=== PATIENT | female | born 1985 | race Caucasian/White ===

== ENCOUNTER 2020-04-27 07:56 | Day surgery (SDC) | payer OTHER ==
--- NOTE | ~2020-04-27 | OR ---
[facility] [address] [place], [place] [address] Draft DATE OF OPERATION: 04/27/2020 SURGEON: Trupti Patel MD PREOPERATIVE DIAGNOSES: 1. Severe left flank pain/nausea and vomiting in a female. 2. Likely obstructing left ureterolithiasis. POSTOPERATIVE DIAGNOSIS: 1. Severe left flank pain/nausea and vomiting in a female. 2. Likely obstructing left ureterolithiasis. PROCEDURES: Diagnostic cystoscopy with left ureteral stent insertion. ANESTHESIA: Spinal anesthesia. ESTIMATED BLOOD LOSS: Minimal. COMPLICATIONS: None. SPECIMENS: None. DRAINS: A 6 x 24 cm double-J ureteral stent inserted into the left ureter. INDICATIONS FOR PROCEDURE: Yumiko is a very pleasant 34-year-old female, who is currently 22 weeks with her third child, who presented to the [facility] early this morning with complaints of a one day or so history of severe left-sided flank pain, nausea, and vomiting. At first, she thought she "over did it while doing house work," however, her flank pain progressively worsened and got to the point where she felt as though she was experiencing active labor. She was given IV Dilaudid multiple times with no significant improvement in her symptoms, and she was also unable to tolerate p.o. intake. She underwent a renal bladder ultrasound this morning at 09:30, which revealed dilation of the left proximal ureter and left renal pelvis along with a lack of ureteral jet on the PATIENT NAME: YUMIKO RICHARD OPERATIVE REPORT DATE OF : [birth year] REPORT #: [id number] PHYSICIAN: TRUPTI PATEL MD PCP: ANGUS BURROWS MD REPORT IS CONFIDENTIAL AND NOT TO BE RELEASED WITHOUT AUTHORIZATION [facility] [address] [place], [place] [address] Draft left side. After discussion of the risks and benefits of the procedure, the patient elected to undergo cystoscopy with left ureteral stent insertion for management of her likely obstructing left ureteral lithiasis. OPERATIVE FINDINGS: 1. On cystoscopy, there was no evidence of any suspicious masses, lesions, or stones. Panendoscopic views of the bladder revealed no other abnormalities. 2. A 6 x 24 cm double-J ureteral stent was inserted into the left collecting system under direct visualization without any difficulty. Upon cannulization of the left ureter, there was a noticeable amount of debris that efflux from the left ureter. This is suggestive of an obstructing stone at some point in the left ureter. The stent was otherwise placed without any difficulty. DESCRIPTION OF PROCEDURE: After informed consent was obtained, the patient was taken back to the operating room. She was transferred from the [facility] to the operating room table, where spinal anesthesia was then induced. She was then placed in the dorsal lithotomy position and the genitalia were prepped and draped in the standard sterile fashion. Using a 30-degree lens on a 22.5-Icelandic introducer, rigid cystoscope was inserted through urethra into her bladder under direct visualization. Panendoscopic views of the bladder were then obtained. Please see above findings. Attention was then turned to the left ureteral orifice. A 0.035 Sensor wire was used to cannulate the left ureter. The wire was advanced to the level of the left renal pelvis, which was confirmed on fluoroscopy. Once adequate placement of the wire was confirmed, a 6 x 24 cm ureteral stent was passed over the wire into the left collecting system under direct visualization. Once the stent was clearly up into the left renal pelvis, Sensor wire was pulled, leaving the ureteral stent with an adequate proximal coil within the left renal pelvis. An adequate distal coil was noted on cystoscopy once the wire was pulled. The patient's bladder was then irrigated again and then emptied. The procedure was then terminated. The patient tolerated the procedure well without any complication. She will now be transferred to the post anesthesia care unit in stable condition. DISPOSITION: I discussed the details of today's procedure with the patient and her and answered all of her questions. She will maintain the stent indwelling on the left side for the remainder of her . She was currently due to deliver on August 27. She will be sent home with cephalexin 500 mg p.o. b.i.d. for the next seven days. Dr. Burrows will be handling the pain control for the patient as needed. She has been placed on our schedule for followup on August 31 for history and physical in preparation for ureteroscopic extraction of her obstructing left ureteral calculus. PATIENT NAME: YUMIKO RICHARD OPERATIVE REPORT DATE OF : [birth year] REPORT #: [id number] PHYSICIAN: TRUPTI PATEL MD PCP: ANGUS BURROWS MD REPORT IS CONFIDENTIAL AND NOT TO BE RELEASED WITHOUT AUTHORIZATION [address] [address] Draft MD PHILOMENA [place]/DIANE /[id number] Copies: ~ PATIENT NAME: YUMIKO RICHARD OPERATIVE REPORT DATE OF : [birth year] REPORT #: [id number] PHYSICIAN: TRUPTI PATEL MD PCP: ANGUS BURROWS MD REPORT IS CONFIDENTIAL AND NOT TO BE RELEASED WITHOUT AUTHORIZATION
[~2020-04-27 07:56] MED LIST: ZANTAC150 MG PO
--- NOTE | 2020-04-27 13:40 | NUR ---
1245-SWABBED BOTH NARES FOR RAPID COVID TEST
--- NOTE | 2020-04-27 15:40 | NUR ---
04/27/20 1540 Carmen Mosley 1515 PT ARRIVED IN PACU WIDE AWAKE C/O FEELING LIGHT HEADED. HOB LOWERED AND IV FLUID WIDE OPEN. ANESTHESIA AT BEDSIDE. 1520 PT FEELING BETTER. FHT'S 150'S IN LLQ. 1530 DR AT BEDSIDE TALKING WITH PT. ALL QUESTIONS ANSWERED.
--- NOTE | 2020-04-27 15:50 | NUR ---
PATIENT TO FLOOR FROM PACU, BEDSIDE REPORT FROM KATARZYNA MONTERO. PATIENT AWAKE AND REQUESTING FOOD. PATIENT REPORTS NUMBNESS IN LEGS AND UNABLE TO MOVE TOES AT THIS TIME. REPORTS NO PAIN OR NAUSEA. DRINKING FLUIDS WELL. CALL LIGHT WITHIN REACH. INSTRUCTED TO CALL WHEN SPINAL WEARS OFF AND ABLE TO PEE.
--- NOTE | 2020-04-27 16:15 | NUR ---
FOOD TRAY DELIVERED TO ROOM.
--- NOTE | 2020-04-27 16:30 | NUR ---
PATIENT UP TO BATHROOM VOIDED 350 ML OF URNINE. REPORTS NO NAUSEA, TOLERATES AMBULATING WELL. PATIENT REPORTS DR. PATEL WAS UNSURE OF PATIENTS PAIN MEDICAITONS AND WANTED DR. LUA WOULD BE CONSULTED. TELEPHONE CALL TO DR. PATEL WHO CONFIRMED WANTNG PATIENT TO HAVE DR. LUA PRESCRIBE. CALL TO DR. LUA WHO REPORTED WOULD BE TO UNIT TO WRITE PAIN MEDICAITON PERSCRIPTION.
--- NOTE | 2020-04-27 16:50 | NUR ---
PATIENT VSS REPORTED TO DR. PATEL WHO OKAYED FOR PATIENT TO GO HOME, CALL TO DR. LUA WHO ALSO REPORTED PATIENT OKAY TO GO HOME. INSTRUCTED THE PATIENT TO CALL DR. LUA WITH ANY FURTHER CONCERNS OR WORSENING CONDITIONS.
--- NOTE | 2020-04-27 17:15 | NUR ---
PROVIDED PATIENT WITH DISCHARGE EDUCATION, ANSWERED QUESTIONS AND CONCERNS. VSS. PATIENT HAS SCRIPTS IN HAND. IV DC'D BY MUCKER COFFERDAM, CATH INTACT. PROVIDED WHEELCHAIR RIDE TO FRONT. PATIET AND AT FRONT LOBBY FILLING OUT PAPER WORK WITH ADMITTING.
== END 2020-04-27 17:15 | disposition home or self-care (01) ==
LOC: DS 07:56 → FBCO 07:56 → DS 12:45 → FBCO 12:45 → EDSTATUS 13:00 → DS 17:15 → FBCO 17:15
PROVIDERS: Urology; ATTEND Obstetrics & Gynecology
PROC: 0T9780Z Drainage of Left Ureter with Drainage Device, Via Natural or Artificial Opening Endoscopic (ICD-10-PCS; principal; 2020-04-27 13:00)
DX: O99.891 Other specified diseases and conditions complicating pregnancy (principal); N13.2 Hydronephrosis with renal and ureteral calculous obstruction; R10.9 Unspecified abdominal pain; Z20.822 Contact with and (suspected) exposure to COVID-19; Z3A.22 22 weeks gestation of pregnancy; Z96.0 Presence of urogenital implants
CPT/HCPCS: 00918; 76000; 76775; 81001; 85025; 87088; 96365; 96366; 96374; 96375; C1769; C2617; C9803; J0690; J1170; J2001; J2405; J2765; J3010; J7121; U0003

== ENCOUNTER 2020-08-27 05:59 | Inpatient (IN) | payer OTHER ==
[~2020-08-27] VITALS: Ht 162.6 cm; Wt 77.1 kg
--- NOTE | 2020-08-27 16:06 | PR ---
[facility] [address] [facility] [place] [address] Signed Progress Notes IP Datetime Report Generated by CPN: 08/27/2020 16:06 PROGRESS NOTES: [id number] Impression: Reassuring Heart Rate Procedures: Artificial ROM; Sterile Vag Exam Plan: Continue Present Management VITAL SIGNS: [id number] Vital Signs: Reviewed; Within Normal Limits EXAM: [id number] Dilatation: 1.0 Effacement: 50 Station: -2 Contractions: q 1 to 3 min MEMBRANES: [id number] Comments: Becoming more uncomfortable with contractions. Pit augment started earlier as she had a couple of deep variables and did not feel comfortable using another Cytotec. She is progressing. Will continue. FETUS A: [id number] FHR Baseline: 145 Variability: Moderate 6-25bpm Accelerations: 15X15 Decelerations: None FHR Category: Category I Presentation: Vertex Comments on Fetus A: No evidence of metabolic acidosis FETUS B: [id number] Signing Physician: Nadiya Burrows MD Copies: ~ *Electronically Signed* 08/27/20 1606 NADIYA BURROWS MD PATIENT NAME: FUAD RICHARD PROGRESS NOTE DATE OF : [birth year] PHYSICIAN: NADIYA BURROWS MD RPT #: [id number] REPORT IS CONFIDENTIAL AND NOT TO BE RELEASED WITHOUT AUTHORIZATION
--- NOTE | 2020-08-27 17:35 | PR ---
[facility] [address] [facility] [place] [place] [address] Signed Progress Notes IP Datetime Report Generated by CPN: 08/27/2020 17:35 PROGRESS NOTES: [id number] Impression: Normal Progression of Labor Procedures: Sterile Vag Exam Plan: Continue Present Management Other Plans: Nitrous for pain relief VITAL SIGNS: [id number] Vital Signs: Reviewed; Within Normal Limits EXAM: [id number] Dilatation: 2.0 Effacement: 80 Station: -2 Contractions: q 1 to 3 min MEMBRANES: [id number] Comments: Progressing and definitely more uncomfortable. Will continue and use nitrous as requested by patient. FETUS A: [id number] FHR Baseline: 145 Variability: Moderate 6-25bpm Accelerations: 15X15 Decelerations: None FHR Category: Category I Presentation: Vertex Comments on Fetus A: No evidence of metabolic acidosis FETUS B: [id number] Signing Physician: Nadiya Burrows MD Copies: ~ *Electronically Signed* 08/27/20 1735 NADIYA BURROWS MD PATIENT NAME: FUAD RICHARD PROGRESS NOTE DATE OF : [birth year] PHYSICIAN: NADIYA BURROWS MD RPT #: [id number] REPORT IS CONFIDENTIAL AND NOT TO BE RELEASED WITHOUT AUTHORIZATION
--- NOTE | 2020-08-27 18:50 | PR ---
[facility] [address] [place], [place] [address] Signed Progress Notes IP Datetime Report Generated by JOSE: 08/27/2020 18:50 PROGRESS NOTES: [id number] Impression: Normal Progression of Labor Procedures: Sterile Vag Exam Plan: Continue Present Management Other Plans: Nitrous for pain relief VITAL SIGNS: [id number] Vital Signs: Reviewed; Within Normal Limits EXAM: [id number] Dilatation: 4.0 Effacement: 100 Station: -1 Contractions: q 1 to 3 min MEMBRANES: [id number] Comments: Getting more comfortable but has window on her left side. Progressing well. Will continue. FETUS A: [id number] FHR Baseline: 145 Variability: Moderate 6-25bpm Accelerations: 15X15 Decelerations: None FHR Category: Category I Presentation: Vertex Comments on Fetus A: No evidence of metabolic acidosis FETUS B: [id number] Signing Physician: Nadiya Burrows MD Copies: ~ *Electronically Signed* 08/27/201849 NADIYA BURROWS MD PATIENT NAME: FUAD RICHARD PROGRESS NOTE DATE OF : [birth year] PHYSICIAN: NADIYA BURROWS MD RPT #: [id number] REPORT IS CONFIDENTIAL AND NOT TO BE RELEASED WITHOUT AUTHORIZATION
--- NOTE | 2020-08-27 19:34 | PR ---
[facility] [address] [facility] [place] [address] Signed Progress Notes IP Datetime Report Generated by JOSE: 08/27/2020 19:34 PROGRESS NOTES: [id number] Impression: Normal Progression of Labor Procedures: Sterile Vag Exam Plan: Continue Present Management Other Plans: Nitrous for pain relief VITAL SIGNS: [id number] Vital Signs: Reviewed; Within Normal Limits EXAM: [id number] Dilatation: 7.0 Effacement: 100 Station: -1 Contractions: q 1 to 3 min MEMBRANES: [id number] Comments: Feeling more and more pelvic pressure and some left discomfort still. Progressing well. Will continue. FETUS A: [id number] FHR Baseline: 145 Variability: Moderate 6-25bpm Accelerations: 15X15 Decelerations: None FHR Category: Category I Presentation: Vertex Comments on Fetus A: No evidence of metabolic acidosis FETUS B: [id number] Signing Physician: Nadiya Burrows MD Copies: ~ *Electronically Signed* 08/27/201933 NADIYA BURROWS MD PATIENT NAME: FUAD RICHARD PROGRESS NOTE DATE OF : [birth year] PHYSICIAN: NADIYA BURROWS MD RPT #: [id number] REPORT IS CONFIDENTIAL AND NOT TO BE RELEASED WITHOUT AUTHORIZATION
--- NOTE | 2020-08-28 08:29 | PR ---
[facility] [place] [facility] [address] [facility] [place] [facility] [place], [place] [address] Signed PP Progress Notes Datetime Report Generated by CPN: 08/28/2020 08:29 SUBJECTIVE: [id number] Pain: Within Normal Limits Vital Signs: [id number] Vital Signs: Reviewed Notable Details: single mild elevation of BP Cardiovascular: Not Done Respiratory: Not Done Abdomen/Uterus: Abnormal Lochia: Normal Vulva/Perineum: Not Done Breasts: Not Done CVA Tenderness: Not Done Extremities: Normal Incision: Not Applicable Progress: Normal Exam Comments: Fundus firm, NT @ U-2. H/H 11/32.2, WBC 19.1, plat 218k IMPRESSION/PLAN/PROCEDURES: [id number] Impression: Normal Progression Plan: Discharge Procedures: Rhogam Progress Notes: Doing well. She wishes discharge later today. Signing Physician: Nadiya Burrows MD Copies: ~ *Electronically Signed* 08/28/20828 NADIYA BURROWS MD PATIENT NAME: FUAD RICHARD PROGRESS NOTE DATE OF : [birth year] PHYSICIAN: NADIYA BURROWS MD RPT #: [id number] REPORT IS CONFIDENTIAL AND NOT TO BE RELEASED WITHOUT AUTHORIZATION
== END 2020-08-28 14:28 | disposition home or self-care (01) | DRG 807 ==
LOC: FBC 05:59
PROVIDERS: ADMIT Obstetrics & Gynecology; ATTEND Obstetrics & Gynecology
PROC: 10E0XZZ Delivery of Products of Conception, External Approach (ICD-10-PCS; principal; 2020-08-27)
PROC: 10907ZC Drainage of Amniotic Fluid, Therapeutic from Products of Conception, Via Natural or Artificial Opening (ICD-10-PCS; 2020-08-27)
PROC: 00HU33Z Insertion of Infusion Device into Spinal Canal, Percutaneous Approach (ICD-10-PCS; 2020-08-27)
PROC: 3E0R3BZ Introduction of Anesthetic Agent into Spinal Canal, Percutaneous Approach (ICD-10-PCS; 2020-08-27)
PROC: 0KQM0ZZ Repair Perineum Muscle, Open Approach (ICD-10-PCS; 2020-08-27)
PROC: 3E0P7VZ Introduction of Hormone into Female Reproductive, Via Natural or Artificial Opening (ICD-10-PCS; 2020-08-27)
PROC: 3E0234Z Introduction of Serum, Toxoid and Vaccine into Muscle, Percutaneous Approach (ICD-10-PCS; 2020-08-28)
DX: O43.193 Other malformation of placenta, third trimester (principal); Z37.0 Single live birth; O70.1 Second degree perineal laceration during delivery; Z3A.40 40 weeks gestation of pregnancy; O26.893 Other specified pregnancy related conditions, third trimester; Z67.41 Type O blood, Rh negative
CPT/HCPCS: 01960; 36415; 83030; 85027; 86850; 86900; 86901; A9270; J2590; J2790; J2795; J7121

== ENCOUNTER 2020-09-07 07:35 | Day surgery (SDC) | payer OTHER ==
[~2020-09-07] VITALS: Ht 152.4 cm; Wt 76.4 kg
--- NOTE | 2020-09-07 09:10 | NUR ---
PT CONT TO REST IN BED WITH CHILD ON LAP, SPOUSE AT BEDSIDE. PT DENIES ANY NEEDS AT THIS TIME. UPDATED WITH APPROX TIME OF SURGERY.
--- NOTE | 2020-09-07 11:36 | NUR ---
09/07/20 1136 Sheets,Celina 1123 PT ARRIVED TO PACU ON 6L VIA MASK, VSS. PT WAKES EASILY AND DENIES PAIN AND NAUSEA. RESP EVEN AND UNLABORED. 1128 O2 REMOVED AND WARM AIR PLACED UNDER BLANKETS PER REQUEST.
[2020-09-07] MEDS ORDERED: CEPHALEXIN500 MG PO (12:28)
[2020-09-07] MEDS ORDERED: OXYCODONE HCL5 MG PO (12:28)
--- NOTE | 2020-09-07 12:37 | NUR ---
LE 1200: PT ARRIVES BACK TO DS RM 12 FROM PACU AWAKE AND ALERT. PT DENIES ANY NAUSEA AND TAKES SMALL SIPS OF WATER WITH CRACKERS. PT STATES BEING HUNGRY AND WOULD LIKE PUDDING AND SOUP. PT DENIES PAIN STATES, "MAYBE A 1/10" WHEN ASKED. DC CRITERIA EXPLAINED TO PT. CALL LIGHT WITHIN REACH, SPOUSE AND INFANT DAUGHTER AT BEDSIDE.
--- NOTE | 2020-09-07 13:15 | NUR ---
PT CALL LIGHT ON. PT STATES SHE NEEDS TO VOID AND IS READY FOR DISCHARGE. PT UP WIT STAND BY ASSIST TO RESTROOM IN [place]. PT STEADY ON FEET AND DENIES DIZZINESS AND NAUSEA. PT ABLE TO SPONTANEOUSLY VOID 300ML PINK URINE. pT DENIES PAIN AT THIS TIME. pT DRESSES SELF WITH STAND BY ASSIST. DISCHARGE INTSRUCTIONS REVIEWED WITH PT. PT VERBALIZES UNDERSTANDING OF INSTRUCTIONS, MEDICAITONS, STENT REMOVAL, AND FOLLOW UP APPOINTMENTS. VITALS SIGNS STABLE. IV DC'D PER PROTOCOL. TIP INTACT, GAZUE AND COBAN APPLIED. PT TRANSFERES SELF TO WHEELCHAIR, WHEELED FROM DAY SUGERGY WITH . NO ADDIITONAL REQUESTS OR CONCERNS.
--- NOTE | 2020-09-08 16:14 | OR ---
[facility] [address] [place], [place] [address] Signed DATE OF OPERATION: 09/07/2020 SURGEON: Trupti Patel MD PREOPERATIVE DIAGNOSIS: 5 mm mid left ureteral calculus. POSTOPERATIVE DIAGNOSES: 1. 4 to 5 mm distal left ureteral calculus. 2. 2 mm left renal calculus. NAMES OF PROCEDURES: 1. Diagnostic cystoscopy with left retrograde pyelogram. 2. Semi-rigid and flexible left nephroureteroscopy with basket extraction of stones. 3. Exchange of a 6 x 24 cm double-J ureteral stent into the left ureter. ANESTHESIA: General. ESTIMATED BLOOD LOSS: 5 mL. COMPLICATIONS: None. SPECIMENS: Two stones collected from the left ureter and left kidney sent to the lab for stone analysis. DRAINS: A 6 x 24 cm double-J ureteral stent inserted into the left collecting system. INDICATIONS FOR PROCEDURE: Yumiko is a very pleasant 34-year-old female, who initially presented to me in the later stages of with severe left-sided flank pain and nausea. She underwent a renal ultrasound, which revealed left hydronephrosis, presumably secondary to an obstructing left ureteral calculus. After an attempt of a trial of passage for a couple of days, the patient elected to undergo cystoscopy with left ureteral stent insertion for management of her stone during the remainder of her . The patient just recently delivered her baby daughter and now presents today to undergo definitive Electronically Signed By: TRUPTI PATEL MD 09/08/20 1614 PATIENT NAME: YUMIKO RICHARD OPERATIVE REPORT DATE OF : 87 REPORT #: [id number] PHYSICIAN: TRUPTI PATEL MD PCP: ARETHA LANZA PA-C REPORT IS CONFIDENTIAL AND NOT TO BE RELEASED WITHOUT AUTHORIZATION [facility] [address] [place], [place] [address] Signed extraction of her left ureteral calculus. She recently underwent KUB prior to surgery, which revealed a 5 mm left mid ureteral calculus. OPERATIVE FINDINGS: 1. On cystoscopy, there was no evidence of any suspicious masses, lesions, or stones. Bilateral ureteral orifices are in their normal anatomic location. There is an indwelling ureteral stent present on the left side with associated mucosal edema of the left ureteral orifice. 2. Left retrograde pyelogram revealed a filling defect in the distal left ureter once the indwelling left ureteral stent was removed. This appears to be consistent with her active ureteral calculus. Retrograde pyelogram also revealed some mild blunting of the calices on the left side along with significant amount of mucosal edema present throughout the entire ureter. I suspect this is reactionary due to the presence of her indwelling stent. 3. The 4 mm stone present in her distal left ureter was easily extracted using a 0 tip basket without the need for any laser fragmentation. 4. Flexible ureteroscopy was then performed where I evaluated the proximal left ureter and entire left kidney. There was a 2 mm stone that was extracted from the left kidney without difficulty. I also noted a good-sized collection of stone matrix that I was able to irrigate from the patient's kidney without difficulty. 5. At the end the procedure, a fresh 6 x 24 cm double-J ureteral stent was inserted into the patient's left collecting system without difficulty. DESCRIPTION OF PROCEDURE: After informed consent was obtained, the patient was taken back to the operating room. She was transferred from the [facility] to the operating room table where general anesthesia was induced. She was placed in the dorsal lithotomy position and in her genitalia were prepped and draped in a standard sterile fashion. Using a 30-degree lens on a 22.5-Guamanian introducer, a rigid cystoscope was inserted through the urethra and into her bladder under direct visualization. Panendoscopic views of the bladder were then obtained. Please see above findings. Attention was turned to the indwelling left ureteral stent, which was removed using a stent grasper. The stent was noted to be mildly calcified. I then used a cone-tipped catheter and advanced it to the level of the left ureteral orifice and a left retrograde pyelogram was performed. Please see above findings. Since the 4 mm stone was fairly distal in the left ureter, I made the decision to perform a semi-rigid ureteroscopy. The semi-rigid ureteroscope was advanced into the left distal left ureter and I was able to visualize the 4 mm stone and extracted using a 0 tip basket without difficulty. I then inserted a 0.03 Sensor wire into the left collecting system. Placement of the wire was confirmed on fluoroscopy. Over the wire, I passed a 13/15 ureteral access sheath into the left collecting system. Repeat retrograde pyelogram through the sheath revealed adequate placement of the sheath. I advanced a flexible ureteroscope through the sheath and into the left Electronically Signed By: TRUPTI PATEL MD 09/08/20 1614 PATIENT NAME: YUMIKO RICHARD OPERATIVE REPORT DATE OF : 87 REPORT #: [id number] PHYSICIAN: TRUPTI PATEL MD PCP: ARETHA LANZA PA-C REPORT IS CONFIDENTIAL AND NOT TO BE RELEASED WITHOUT AUTHORIZATION [address] [address] Signed proximal ureter and left kidney. A thorough diagnostic nephroscopy was then performed. Please see above findings. The small stone in the mid pole of the left kidney was extracted in toto using 0 tip basket. I did not visualize any other additional stones within the kidney. However, there was a significant amount of stone matrix that was flushed from the kidney. Once I was satisfied that every thing had been removed from the left kidney, I removed the ureteroscope and inserted a Sensor wire through the sheath and into the left renal pelvis. The ureteral access sheath was then removed fully intact, leaving the Sensor wire behind. Over the Sensor wire, I passed a 6 x 24 cm double-J ureteral stent into the left ureter under direct visualization without difficulty. Once the wire was pulled, I could appreciate an adequate proximal coil within the left renal pelvis. An adequate distal coil was also noted on cystoscopy. The procedure was then terminated. The patient tolerated the procedure well without any complication. She will now be transferred to the postanesthesia care unit in stable condition. DISPOSITION: I discussed the details of today's procedure with the patient and answered all of her questions. She will be going home today with cephalexin for a total of 7 days along with oxycodone 5 mg 1 tablet p.o. q.6 to 8 hours p.r.n. pain, dispense #20 as needed for pain. She will be scheduled return to clinic in approximately 2 months to discuss the results of her stone analysis. I have instructed her to remove her indwelling ureteral stent this coming MondaySeptember 12 using the string attached. MD PHILOMENA Madrid/DIANE /[id number] Copies: ~ Electronically Signed By: TRUPTI PATEL MD 09/08/20 1614 PATIENT NAME: YUMIKO RICHARD OPERATIVE REPORT DATE OF : [birth year] REPORT #: [id number] PHYSICIAN: TRUPTI PATEL MD PCP: ARETHA LANZA PA-C REPORT IS CONFIDENTIAL AND NOT TO BE RELEASED WITHOUT AUTHORIZATION
== END 2020-09-07 13:15 | disposition home or self-care (01) ==
LOC: DS 07:35 → OPS 07:35 → DS 08:55 → OPS 13:15
PROVIDERS: ATTEND Urology
PROC: 0T9780Z Drainage of Left Ureter with Drainage Device, Via Natural or Artificial Opening Endoscopic (ICD-10-PCS; 2020-09-07)
PROC: 0TC48ZZ Extirpation of Matter from Left Kidney Pelvis, Via Natural or Artificial Opening Endoscopic (ICD-10-PCS; principal; 2020-09-07 08:55)
PROC: 0TC78ZZ Extirpation of Matter from Left Ureter, Via Natural or Artificial Opening Endoscopic (ICD-10-PCS; 2020-09-07 08:55)
DX: O99.893 Other specified diseases and conditions complicating puerperium (principal); N13.2 Hydronephrosis with renal and ureteral calculous obstruction; Z87.442 Personal history of urinary calculi; Z96.0 Presence of urogenital implants
CPT/HCPCS: 00918; 74420; 82365; C1769; C2617; J0131; J0690; J1100; J1885; J2001; J2405; J2704; J3010; J7121; Q9967

== ENCOUNTER 2020-09-12 09:26 | Emergency (ER) | payer OTHER ==
[~2020-09-12] VITALS: Ht 152.4 cm; Wt 76.2 kg
[~2020-09-12 09:26] MED LIST changes: +CEPHALEXIN500 MG PO; +OXYCODONE HCL5 MG PO
--- OUTSIDE RECORDS SUMMARY | 2020-09-12 09:28 | XMS ---
PreManage Notification: FUAD RICHARD Security Computer Networker Events No recent Security Events currently on file CRITERIA MET - PDMP CARE PROVIDERS MEDICINE, [facility] FAMILY PHONE: [phone] Maira has no Care Guidelines for this patient. Yolanda VISIT COUNT (12 MO.) 1 ROSALIA Shrestha TOTAL 1 NOTE: Visits indicate total known visits. ED/UCC VISIT TRACKING (12 MO.) 09/12/2020 09:26 [facility] TYPE: Emergency COMPLAINT: - L SIDED STOMACH PAIN INPATIENT VISIT TRACKING (12 MO.) 08/27/2020 05:59 [facility] OR TYPE: [facility] COMPLAINT: - INDUCTION DIAGNOSES: - Encounter for supervision of normal , unspecified, third trimester - Other malformation of placenta, third trimester - Type O blood, Rh negative - Other specified related conditions, third trimester - Encounter for full-term uncomplicated delivery - Second degree perineal laceration during delivery - Type O blood, Rh negative - Other specified related conditions, third trimester - 40 weeks gestation of - Second degree perineal laceration during delivery - Single live - Single live - 40 weeks gestation of [email or web address]
== END 2020-09-12 12:00 | disposition home or self-care (01) ==
LOC: ED 09:26
DX: O99.893 Other specified diseases and conditions complicating puerperium (principal); R10.9 Unspecified abdominal pain; Z79.899 Other long term (current) drug therapy
CPT/HCPCS: 81001; 87088; 99284